=== PATIENT | female | born 1975 | race Caucasian/White ===

== ENCOUNTER 2019-05-05 18:16 | Emergency (ER) | payer BC ==
[~2019-05-05] VITALS: Ht 160 cm; Wt 93.1 kg
[2019-05-05] MEDS ORDERED: KETOROLAC 30MG/ML VIAL IV STA (21:52)
[2019-05-05] MEDS ORDERED: ACETAMINOPHEN 325MG TABLET PO STA (21:52)
[2019-05-05] MEDS ORDERED: SODIUM CHLORIDE 0.9% 1000ML BAG (SEPSIS BOLUS) IV ONE (22:00)
[2019-05-05 22:53] LABS: BASOPHILS % 0.4 % (0.0-2.0); EOSINOPHILS % 0.1 % (0.0-5.0); HEMOGLOBIN. 12.9 g/dL (12.0-16.0); LYMPHOCYTES % 24.4 % (20.0-50.0); MEAN CORPUSCULAR HEMOGLOBIN 29.7 pg (28.0-32.0); MEAN CORPUSCULAR VOLUME 85.5 fL (81.0-99.0); MEAN PLATELET VOLUME 9.3 fl (7.4-10.4); MONOCYTES % 9.7 % (2.0-8.0); NEUTROPHILS % 65.4 % (40.0-76.0); PLATELET 339 x1000/uL (130-400); RED BLOOD CELL COUNT 4.33 mill/uL (4.2-5.4); RED CELL DISTRIBUTION WIDTH 13.1 % (11.6-14.6)
[2019-05-05 22:55] LABS: CHLORIDE 104 mEq/L (98-107)
[2019-05-05 23:15] LABS: HCG SCREEN NEGATIVE
[2019-05-06 01:22] VITALS: BP 101/68
== END 2019-05-06 01:56 | disposition home or self-care (01) ==
LOC: ER 18:16
DX: R50.9 Fever, unspecified (principal); E86.0 Dehydration; M79.18 Myalgia, other site
CPT/HCPCS: 36415; 71045; 80053; 83605; 83690; 84703; 85025; 87040; 87077; 87186; 87804; 93005; 96361; 96374; 99284; J1885; J7030

== ENCOUNTER 2019-10-12 16:51 | Emergency (ER) | payer BC, MEDICAID ==
[~2019-10-12] VITALS: Ht 160 cm; Wt 100.0 kg
[2019-10-12] MEDS ORDERED: IBUPROFEN 600MG TABLET PO STA (20:26)
[2019-10-12 20:46] LABS: CLARITY URINE CLOUDY (CLEAR); COLOR URINE DARK YELLOW (YELLOW); KETONES URINE 1+ (NEGATIVE); LEUKOCYTE ESTERASE URINE TRACE (NEGATIVE); NITRITE URINE NEGATIVE (NEGATIVE); OCCULT BLOOD URINE 1+ (NEGATIVE); PH URINE 5.5 (4.5-8.0); PROTEIN URINE 3+ (NEGATIVE); SPECIFIC GRAVITY URINE 1.026 (1.005-1.030)
[2019-10-12 22:37] VITALS: BP 103/69
== END 2019-10-12 22:38 | disposition home or self-care (01) ==
LOC: ER 16:51
DX: J06.9 Acute upper respiratory infection, unspecified (principal); N39.0 Urinary tract infection, site not specified; M79.10 Myalgia, unspecified site; Z90.49 Acquired absence of other specified parts of digestive tract; Z87.19 Personal history of other diseases of the digestive system; Z98.51 Tubal ligation status
CPT/HCPCS: 71045; 81003; 81025; 87804; 99284; Z7610

== ENCOUNTER 2019-10-15 17:37 | Emergency (ER) | payer MEDICAID ==
[~2019-10-15] VITALS: Ht 160 cm; Wt 95.0 kg
[2019-10-15] MEDS ORDERED: ACETAMINOPHEN 325MG TABLET PO ONE (22:00)
[2019-10-15] MEDS ORDERED: IBUPROFEN 600MG TABLET PO STA (22:44)
[2019-10-15 23:32] LABS: BASOPHILS % 0.7 % (0.0-2.0); HEMOGLOBIN. 14.8 g/dL (12.0-16.0); LYMPHOCYTES % 46.4 % (20.0-50.0); MEAN CORPUSCULAR HEMOGLOBIN 28.2 pg (28.0-32.0); MEAN CORPUSCULAR VOLUME 85.8 fL (81.0-99.0); MEAN PLATELET VOLUME 9.5 fl (7.4-10.4); MONOCYTES % 13.6 % (2.0-8.0); NEUTROPHILS % 39.3 % (40.0-76.0); PLATELET 231 x1000/uL (130-400); RED BLOOD CELL COUNT 5.24 mill/uL (4.2-5.4); RED CELL DISTRIBUTION WIDTH 13.5 % (11.6-14.6)
[2019-10-16 01:08] LABS: CLARITY URINE TURBID (CLEAR); COLOR URINE YELLOW (YELLOW); KETONES URINE NEGATIVE (NEGATIVE); LEUKOCYTE ESTERASE URINE TRACE (NEGATIVE); NITRITE URINE NEGATIVE (NEGATIVE); OCCULT BLOOD URINE NEGATIVE (NEGATIVE); PH URINE 5.5 (4.5-8.0); PROTEIN URINE 2+ (NEGATIVE); SPECIFIC GRAVITY URINE 1.013 (1.005-1.030)
[2019-10-16 02:22] VITALS: BP 105/58
== END 2019-10-16 02:54 | disposition home or self-care (01) ==
LOC: ER 17:37
DX: J20.9 Acute bronchitis, unspecified (principal); M60.89 Other myositis, multiple sites; Z87.440 Personal history of urinary (tract) infections
CPT/HCPCS: 36415; 71045; 80048; 81003; 81025; 83605; 85025; 87804; 93005; 99284